=== PATIENT | female | born 1985 | race Caucasian/White ===

== ENCOUNTER 2023-06-07 15:22 | Emergency (ER) | payer MEDICAID ==
[~2023-06-07] VITALS: Ht 165.1 cm; Wt 70.0 kg
[2023-06-07 15:27] VITALS: O2SAT 98
[2023-06-07] MEDS ORDERED: ACETAMINOPHEN 325MG TABLET PO ONE (16:45)
[2023-06-07 19:13] VITALS: BP 127/84; PULSE 88; RESP 16; TEMP 98.6
== END 2023-06-07 19:14 | disposition home or self-care (01) ==
LOC: ER 15:22
DX: O26.891 Other specified pregnancy related conditions, first trimester (principal); M79.605 Pain in left leg; Z3A.10 10 weeks gestation of pregnancy
CPT/HCPCS: 73610; 73630; 76801; 99284